=== PATIENT | male | born 1980 | race Two or more races ===

== ENCOUNTER 2016-07-14 03:05 | Emergency (ER) | payer MEDICARE, OTHER ==
[2016-07-14] MEDS ORDERED: TRAMADOL 50 MG TAB ONE (04:10)
[2016-07-14] MEDS ORDERED: DIAZEPAM 5 MG TAB ONE (04:10)
== END 2016-07-14 05:10 | disposition home or self-care (01) ==
LOC: ER 03:05
DX: S16.1XXA Strain of muscle, fascia and tendon at neck level, initial encounter (principal); M25.511 Pain in right shoulder; M54.9 Dorsalgia, unspecified; E11.9 Type 2 diabetes mellitus without complications; F17.210 Nicotine dependence, cigarettes, uncomplicated
CPT/HCPCS: 82947